=== PATIENT | female | born 1960 | race Caucasian/White ===

== ENCOUNTER 2016-08-19 17:44 | Emergency (ER) | payer SELFPAY ==
[2016-08-19 19:08] VITALS: BP 148/72
[2016-08-19] MEDS ORDERED: DIPH/PERTUSS(ACELL)/TETANUS VAC/PF 0.5 ML SYR (>=10YO) IM ONE (20:07)
--- NOTE | 2016-08-19 20:08 | ER Document Report ---
ED Medical Screen (RME) - General Chief Complaint: Laceration Stated Complaint: LEFT INDEX FINGER LACERATION Notes: Patient cut the distal left index finger on a knife while cutting fish. She has about a 1 cm laceration near the tip of the finger which is bleeding and appears to need a couple of sutures. Needs tetanus update. TRAVEL OUTSIDE OF THE [place] IN LAST 30 DAYS: No - Related Data Allergies/Adverse Reactions: No Known Allergies Allergy (Verified 08/19/16 19:12) Past Medical History Renal/ Medical History: Denies: Hx Peritoneal Dialysis Past Surgical History: Reports: Hx Appendectomy - Immunizations Hx Diphtheria, Pertussis, Tetanus Vaccination: Yes Physical Exam - Vital signs Vitals: Temp Pulse Resp BP Pulse Ox 98.2 F 85 20 148/72 H 96 08/19/16 19:07 08/19/16 19:07 08/19/16 19:07 08/19/16 19:07 08/19/16 19:07 Course - Vital Signs Vital signs: Temp Pulse Resp BP Pulse Ox 98.2 F 85 20 148/72 H 96 08/19/16 19:07 08/19/16 19:07 08/19/16 19:07 08/19/16 19:07 08/19/16 19:07
== END 2016-08-19 23:17 | disposition left against medical advice (07) ==
LOC: ER 17:44
DX: Z53.9 Procedure and treatment not carried out, unspecified reason (principal); S61.211A Laceration without foreign body of left index finger without damage to nail, initial encounter
CPT/HCPCS: 99281